=== PATIENT | male | born 1995 ===

== ENCOUNTER 2019-09-01 22:19 | Emergency (ER) | payer MEDICAID ==
[2019-09-01] MEDS ORDERED: Sodium Chloride 0.9% 1000 ML 1,000 ML ONE (22:43)
[2019-09-01] MEDS ORDERED: Pepcid 20 MG VIAL IV ONE (22:43)
[2019-09-01] MEDS ORDERED: Zofran 4 MG/2 ML VIAL ONE (22:43)
[2019-09-01 22:45] LABS: Absolute Neutrophil Ct (ANC) 5.58 (1.4-6.9); BASOPHIL % 0.3 % (0.0-0.4); Basophil (Absolute #) 0.02 (0-0.4); Eosinophil % 0.1 % (0.00-5.0); Eosinophil (Absolute #) 0.01 (0-0.5); Hematocrit 48.2 % (42-50); Hemoglobin 16.5 gm/dl (12.5-18.0); Lymphocyte (Absolute #) 1.73 (1.0-4.6); Lymphocytes % 22.1 % (24.0-44.0); Mean Cell Volume 88.8 fl (78-100); Mean Corpuscular Hemoglobin 30.4 pg (26-32); Mean Corpuscular Hgb Concent. 34.2 g/dl (32-36); Mean Platelet Volume 10.2 fl (7.5-11.0); Monocytes % 6.4 % (0.0-12.0); Neutrophil % 71.1 % (36.0-66.0); Platelet Count 278 K/mm3 (150-450); Red Blood Count 5.43 M/mm3 (4.1-5.6); Red Cell Distribution Width 12.5 % (11.5-14.0); White Blood Count 7.8 K/mm3 (4.0-10.5)
[2019-09-01] MEDS: Pepcid 20 MG VIAL IV ONE (22:46)
[2019-09-01] MEDS: Sodium Chloride 0.9% 1000 ML 1,000 ML IV STA (22:46)
[2019-09-01] MEDS: Zofran 4 MG/2 ML VIAL IV ONE (22:46)
[2019-09-01 22:48] LABS: Appearance CLEAR (CLEAR); Bilirubin NEGATIVE (NEGATIVE); Blood NEGATIVE Ery/ul (0-5); Glucose NEGATIVE (NEGATIVE); Ketones NEGATIVE (NEGATIVE); Leukocyte Esterase NEGATIVE (NEGATIVE); Mucus SLIGHT /HPF (NEGATIVE); Nitrite NEGATIVE (NEGATIVE); Protein,Urine Dip NEGATIVE (Negative); Specific Gravity 1.006 (1.005-1.025); Urobilinogen NEGATIVE mg/dL (0-1)
--- NOTE | 2019-09-01 22:49 | ERPHSYRPT ---
- History of Present Illness Time Seen by Provider: 09/01/19 22:20 Source: EMS, other Exam Limitations: clinical condition (Significant other), intoxication Patient Subjective Stated Complaint: Pt's friend informs us they were bowling and he was drinking, he drank approx 350ml of [place] Goose Vodka and a monster drink. Pt fell on ground at [facility], was lethargic and a friend had to carry him to car. When arrived at home, Friend carried him into home and they put him in the cold shower to try to wake him up, very little response to that. Called EMS, brought to ER. Triage Nursing Assessment: Pt's friend informs us they were bowling and he was drinking, he drank approx 350ml of [place] Goose Vodka and a monster drink. Pt fell on ground at [facility], was lethargic and a friend had to carry him to car. When arrived at home, Friend carried him into home and they put him in the cold shower to try to wake him up, very little response to that. Called EMS, brought to ER. Pt lethargic, received information from friend at bedside. Lungs clear. Physician History: 24-year-old white male who was not suicidal or homicidal but was bowling with friends and was combining drinks of zambrano goose vodka and monster caffeinated drinks. It is estimated that in a 4-hour period of time patient drank approximately 350 mL's of zambrano goose vodka. Most of which was drank within the first 2 hours. Patient was stumbling slurring his speech and was taken home by his significant other. They put him in the bathtub again a shower and he was lethargic and had minimal response. EMS was contacted. Upon arrival patient was lethargic but arousable. Patient is breathing on his own and maintaining a blood pressure that is normal. There have been no vomiting. Significant other states no other medications or illicit drugs were taken by this patient. Patient arrives to the emergency department via EMS. Timing/Duration: today Severity: moderate Associated Symptoms: denies symptoms Allergies/Adverse Reactions: UNOBTAINABLE Allergy (Unverified 09/01/19 22:33) Hx Tetanus, Diphtheria Vaccination/Date Given: (unknown) Hx Influenza Vaccination/Date Given: No Hx Pneumococcal Vaccination/Date Given: No Immunizations Up to Date: No Travel Risk - International Travel Have you traveled outside of the country in past 3 weeks: No - Coronavirus Screening Are you exhibiting any of the following symptoms?: No Close contact with a COVID-19 positive Pt in past 14-21 Days: No - Review of Systems Constitutional: Lethargy Eyes: No Symptoms Ears, Nose, & Throat: No Symptoms Respiratory: No Symptoms Cardiac: No Symptoms Abdominal/Gastrointestinal: No Symptoms Genitourinary Symptoms: No Symptoms Musculoskeletal: No Symptoms Skin: No Symptoms Neurological: Lethargy, Other (Intoxicated with alcohol. Smells of alcohol) Psychological: No Suicidal Ideations, No Homicidal Ideations Endocrine: No Symptoms Hematologic/Lymphatic: No Symptoms Immunological/Allergic: No Symptoms All Other Systems: Reviewed and Negative - Past Medical History Pertinent Past Medical History: No Neurological History: No Pertinent History ENT History: No Pertinent History Cardiac History: No Pertinent History Respiratory History: No Pertinent History Endocrine Medical History: No Pertinent History Musculoskeletal History: No Pertinent History GI Medical History: No Pertinent History History: No Pertinent History Psycho-Social History: No Pertinent History Male Reproductive Disorders: No Pertinent History - Past Surgical History Past Surgical History: No Neuro Surgical History: No Pertinent History Cardiac: No Pertinent History Respiratory: No Pertinent History Gastrointestinal: No Pertinent History Genitourinary: No Pertinent History Musculoskeletal: No Pertinent History Male Surgical History: No Pertinent History - Social History Smoking Status: Never smoker Exposure to second hand smoke: No Drug Use: marijuana Patient Lives Alone: No (grandparents) - Nursing Vital Signs Nursing Vital Signs: Initial Vital Signs Temperature 95.7 F 09/01/19 22:20 Pulse Rate 83 09/01/19 22:20 Respiratory Rate 20 09/01/19 22:20 Blood Pressure 169/151 09/01/19 22:20 O2 Sat by Pulse Oximetry 100 09/01/19 22:20 Pain Scale Pain Intensity 0 - Physical Exam General Appearance: lethargy, other Eye Exam: PERRL/EOMI (Smells of alcohol), eyes nml inspection Ears, Nose, Throat Exam: normal ENT inspection, moist mucous membranes Neck Exam: normal inspection, non-tender, supple, full range of motion Respiratory Exam: normal breath sounds, lungs clear, airway intact, No chest tenderness, No respiratory distress Cardiovascular Exam: regular rate/rhythm, normal heart sounds, normal peripheral pulses Gastrointestinal/Abdomen Exam: soft, normal bowel sounds, No tenderness, No gu arding Rectal Exam: not done Back Exam: normal inspection, No CVA tenderness, No vertebral tenderness Extremity Exam: normal inspection, pelvis stable Neurologic Exam: intoxicated appearance, slurred speech Skin Exam: normal color, warm, dry Lymphatic Exam: No adenopathy SpO2 Interpretation: normal SpO2: 99 O2 Delivery: Room Air - Course Nursing assessment & vital signs reviewed: Yes EKG Interpreted by Me: RATE (73), Sinus Rhythm, NORMAL AXIS, NORMAL INTERVALS, NORMAL QRS, Other (No acute ischemic changes. No comparison EKG available) Ordered Tests: Active Orders 24 hr Category Date Time Status Musical Instrument Maker STAT Care 09/01/19 22:23 Active Catheter-Sharps Ryan STAT Care 09/01/19 22:22 Active EKG-ER Only STAT Care 09/01/19 22:22 Active IV Insertion STAT Care 09/01/19 22:22 Active IV Insertion-2nd Peripheral STAT Care 09/01/19 22:41 Active Pulse Oximetry (ED) STAT Care 09/01/19 22:41 Active HEAD WITHOUT CONTRAST [CT] Stat Exams 09/01/19 22:22 Taken ACETAMINOPHEN Stat Lab 09/01/19 22:43 Completed CBC W DIFF Stat Lab 09/01/19 22:43 Completed CMP Stat Lab 09/01/19 22:43 Completed CULTURE,URINE Stat Lab 09/01/19 22:43 Received ETHYL ALCOHOL Stat Lab 09/01/19 22:43 Completed ETHYL ALCOHOL Stat Lab 09/02/19 04:13 Ordered UA W/RFX UR CULTURE Stat Lab 09/01/19 22:43 Completed Urine Triage Profile Stat Lab 09/01/19 22:43 Completed Medication Summary Generic Name Dose Route Start Last Admin Trade Name Freq PRN Reason Stop Dose Admin Famotidine 40 mg 09/02/19 22:24 09/01/19 22:46 Pepcid 20 Mg Vial IV 09/02/19 22:25 40 mg STAT ONE Administration Discontinued Medications Generic Name Dose Route Start Last Admin Trade Name Freq PRN Reason Stop Dose Admin Famotidine Confirm 09/01/19 22:43 Pepcid 20 Mg Vial Administered 09/01/19 22:44 Dose 40 mg IV .STK-MED ONE Sodium Chloride 1,000 mls @ 999 mls/hr 09/01/19 22:22 09/01/19 22:46 Sodium Chloride 0.9% 1000 Ml IV 09/01/19 23:22 999 mls/hr .Q1H1M STA Administration Sodium Chloride Confirm 09/01/19 22:43 Sodium Chloride 0.9% 1000 Ml Administered 09/01/19 22:44 Dose 1,000 mls @ ud .ROUTE .STK-MED ONE Sodium Chloride 1,000 mls @ 999 mls/hr 09/02/19 00:52 09/02/19 01:00 Sodium Chloride 0.9% 1000 Ml IV 09/02/19 01:52 999 mls/hr .Q1H1M STA Administration Sodium Chloride Confirm 09/02/19 00:54 Sodium Chloride 0.9% 1000 Ml Administered 09/02/19 00:55 Dose 1,000 mls @ ud .ROUTE .STK-MED ONE Ondansetron HCl 4 mg 09/01/19 22:22 09/01/19 22:46 Zofran 4 Mg/2 Ml Vial IV 09/01/19 22:23 4 mg STAT ONE Administration Ondansetron HCl Confirm 09/01/19 22:43 Zofran 4 Mg/2 Ml Vial Administered 09/01/19 22:44 Dose 4 mg .ROUTE .STK-MED ONE Lab/Rad Data: Laboratory Result Diagrams 09/01/19 22:43 09/01/19 22:43 Laboratory Results 09/01/19 09/01/19 09/01/19 Range/Units 22:43 22:43 22:43 WBC (4.0-10.5) K/mm3 RBC (4.1-5.6) M/mm3 Hgb (12.5-18.0) gm/dl Hct (42-50) % MCV (78-100) fl MCH (26-32) pg MCHC (32-36) g/dl RDW (11.5-14.0) % Plt Count (150-450) K/mm3 MPV (7.5-11.0) fl Gran % (36.0-66.0) % Eos # (Auto) (0-0.5) Absolute Lymphs (auto) (1.0-4.6) Absolute Monos (auto) (0.0-1.3) Lymphocytes % (24.0-44.0) % Monocytes % (0.0-12.0) % Eosinophils % (0.00-5.0) % Basophils % (0.0-0.4) % Absolute Granulocytes (1.4-6.9) Basophils # (0-0.4) Sodium 143 (137-145) mmol/L Potassium 3.4 L (3.5-5.1) mmol/L Chloride 106 (98-107) mmol/L Carbon Dioxide 24 (22-30) mmol/L Anion Gap 16.3 H (5-15) MEQ/L BUN 12 (9-20) mg/dL Creatinine 0.94 (0.66-1.25) mg/dL Estimated GFR > 60.0 ML/MIN Glucose 124 H (74-106) mg/dL Calcium 8.8 (8.4-10.2) mg/dL Total Bilirubin 0.40 (0.2-1.3) mg/dL AST 35 (17-59) U/L ALT 28 (0-50) U/L Alkaline Phosphatase 108 (38-126) U/L Serum Total Protein 7.9 (6.3-8.2) g/dL Albumin 4.7 (3.5-5.0) g/dL Urine Color STRAW (YELLOW) Urine Appearance CLEAR (CLEAR) Urine pH 6.0 (5-6) Ur Specific [place] 1.006 (1.005-1.025) Urine Protein NEGATIVE (Negative) Urine Ketones NEGATIVE (NEGATIVE) Urine Blood NEGATIVE (0-5) Cliff/ul Urine Nitrite NEGATIVE (NEGATIVE) Urine Bilirubin NEGATIVE (NEGATIVE) Urine Urobilinogen NEGATIVE (0-1) mg/dL Ur Leukocyte Esterase NEGATIVE (NEGATIVE) Urine WBC (Auto) NONE (0-5) /HPF Urine RBC (Auto) NONE (0-2) /HPF U Epithel Cells (Auto) NONE (FEW) /HPF Urine Bacteria (Auto) NONE (NEGATIVE) /HPF Urine Mucus (Auto) SLIGHT (NEGATIVE) /HPF Urine Culture Reflexed ORDERED SEPARATELY (NO) Urine Glucose NEGATIVE (NEGATIVE) mg/dL Urine Opiates Level NEGATIVE (NEGATIVE) Ur Methadone NEGATIVE (NEGATIVE) Acetaminophen < 10 L (10-30) ug/ml Urine Barbiturates NEGATIVE (NEGATIVE) Ur Phencyclidine (PCP) NEGATIVE (NEGATIVE) Urine Amphetamine NEGATIVE (NEGATIVE) U Benzodiazepine Level NEGATIVE (NEGATIVE) Urine Cocaine NEGATIVE (NEGATIVE) Urine Marijuana (THC) NEGATIVE (NEGATIVE) Ethyl Alcohol 356 H (0-10) mg/dL 09/01/19 Range/Units 22:43 WBC 7.8 (4.0-10.5) K/mm3 RBC 5.43 (4.1-5.6) M/mm3 Hgb 16.5 (12.5-18.0) gm/dl Hct 48.2 (42-50) % MCV 88.8 (78-100) fl MCH 30.4 (26-32) pg MCHC 34.2 (32-36) g/dl RDW 12.5 (11.5-14.0) % Plt Count 278 (150-450) K/mm3 MPV 10.2 (7.5-11.0) fl Gran % 71.1 H (36.0-66.0) % Eos # (Auto) 0.01 (0-0.5) Absolute Lymphs (auto) 1.73 (1.0-4.6) Absolute Monos (auto) 0.50 (0.0-1.3) Lymphocytes % 22.1 L (24.0-44.0) % Monocytes % 6.4 (0.0-12.0) % Eosinophils % 0.1 (0.00-5.0) % Basophils % 0.3 (0.0-0.4) % Absolute Granulocytes 5.58 (1.4-6.9) Basophils # 0.02 (0-0.4) Sodium (137-145) mmol/L Potassium (3.5-5.1) mmol/L Chloride (98-107) mmol/L Carbon Dioxide (22-30) mmol/L Anion Gap (5-15) MEQ/L BUN (9-20) mg/dL Creatinine (0.66-1.25) mg/dL Estimated GFR ML/MIN Glucose (74-106) mg/dL Calcium (8.4-10.2) mg/dL Total Bilirubin (0.2-1.3) mg/dL AST (17-59) U/L ALT (0-50) U/L Alkaline Phosphatase (38-126) U/L Serum Total Protein (6.3-8.2) g/dL Albumin (3.5-5.0) g/dL Urine Color (YELLOW) Urine Appearance (CLEAR) Urine pH (5-6) Ur Specific [place] (1.005-1.025) Urine Protein (Negative) Urine Ketones (NEGATIVE) Urine Blood (0-5) Cliff/ul Urine Nitrite (NEGATIVE) Urine Bilirubin (NEGATIVE) Urine Urobilinogen (0-1) mg/dL Ur Leukocyte Esterase (NEGATIVE) Urine WBC (Auto) (0-5) /HPF Urine RBC (Auto) (0-2) /HPF U Epithel Cells (Auto) (FEW) /HPF Urine Bacteria (Auto) (NEGATIVE) /HPF Urine Mucus (Auto) (NEGATIVE) /HPF Urine Culture Reflexed (NO) Urine Glucose (NEGATIVE) mg/dL Urine Opiates Level (NEGATIVE) Ur Methadone (NEGATIVE) Acetaminophen (10-30) ug/ml Urine Barbiturates (NEGATIVE) Ur Phencyclidine (PCP) (NEGATIVE) Urine Amphetamine (NEGATIVE) U Benzodiazepine Level (NEGATIVE) Urine Cocaine (NEGATIVE) Urine Marijuana (THC) (NEGATIVE) Ethyl Alcohol (0-10) mg/dL - Progress Progress: improved, re-examined Progress Note: 09/02/19 00:53 Patient reexamined. Patient still intoxicated but wakes up more readily wake up and he opens his eyes and answers some questions but speech is still slurred. Following some commands. 09/02/19 04:34 Patient sitting up on his own. Intoxication is still present but now laughing and joking. He is interacting with nurses been having full discussions with them. We will obtain another alcohol level. If this level is reasonable and he tolerates both oral liquids and is ambulating well on his own, the plan is to discharge him to home. 09/02/19 04:50 CAT scan of the head reveals no acute intracranial abnormality 09/02/19 04:52 Patient states that he has no chest pain he is not short of breath he has no abdominal pain. He has no nausea. 09/02/19 05:06 Patient's repeat blood alcohol is 233. Patient is awake alert speaking more clearly. He is tolerated clear liquids and he ambulated on his own to urinate in the restroom. We will discharge him to home. Counseled pt/family regarding: lab results, diagnosis - Departure Departure Disposition: Home Clinical Impression: Acute alcohol intoxication Condition: Stable Critical Care Time: No Referrals: DOCTOR,NO FAMILY [Primary Care Provider] - Additional Instructions: Follow-up with an as-needed basis. Avoid alcohol ingestion. Avoid fatty greasy spicy foods. Your medication as prescribed. Prescriptions: Famotidine 20 mg [Pepcid 20 MG] 20 mg PO DAILY #10 tablet Ondansetron HCl [Zofran] 4 mg PO TID PRN #10 tablet PRN Reason: Nausea/Vomiting
[2019-09-01 22:58] LABS: ALBUMIN 4.7 g/dL (3.5-5.0); ALKALINE PHOSPHATASE 108 U/L (38-126); ANION GAP 16.3 MEQ/L (5-15); BLOOD UREA NITROGEN 12 mg/dL (9-20); CHLORIDE 106 mmol/L (98-107); Calcium 8.8 mg/dL (8.4-10.2); Carbon Dioxide 24 mmol/L (22-30); Creatinine 1 0.94 mg/dL (0.66-1.25); Glucose 124 mg/dL (74-106); Potassium 3.4 mmol/L (3.5-5.1); SGOT/AST 35 U/L (17-59); SGPT/ALT 28 U/L (0-50); SODIUM 143 mmol/L (137-145); Total Protein 7.9 g/dL (6.3-8.2)
[2019-09-01 23:01] LABS: Amphetamine,Urine NEGATIVE (NEGATIVE); Barbiturate,Urine NEGATIVE (NEGATIVE); Benzodiazepine,Urine NEGATIVE (NEGATIVE); Cocaine,Urine NEGATIVE (NEGATIVE); Methadone,Urine NEGATIVE (NEGATIVE); Opiate,Urine NEGATIVE (NEGATIVE); PCP,Urine NEGATIVE (NEGATIVE); THC,Urine NEGATIVE (NEGATIVE)
[2019-09-01 23:07] LABS: ACETAMINOPHEN < 10 ug/ml (10-30); ETHYL ALCOHOL 356 mg/dL (0-10)
[2019-09-02] MEDS ORDERED: Sodium Chloride 0.9% 1000 ML 1,000 ML ONE (00:54)
[2019-09-02] MEDS: Sodium Chloride 0.9% 1000 ML 1,000 ML IV STA (01:00)
[2019-09-02 05:35] VITALS: BP 105/62; PULSE 78; O2SAT 98
--- NOTE | 2019-09-02 09:05 | XRAY ---
Indication: Altered mental status. Alcohol intoxication. Multiple contiguous axial images obtained through the head without contrast. Comparison: None Anatomic variant for cavum septum pellucidum. Otherwise normal appearing brain parenchyma, ventricles, and bony calvarium. Visualized paranasal sinuses and mastoid air cells are clear. Impression: Negative CT head without contrast exam. Comment: Preliminary interpretation was made by [facility]. No critical discrepancy.
== END 2019-09-02 05:20 | disposition critical access hospital (66) ==
LOC: ED 22:19
DX: F10.129 Alcohol abuse with intoxication, unspecified (principal)
CPT/HCPCS: 36000; 36415; 51702; 70450; 80053; 80307; 81001; 85025; 87086; 93005; 93041; 94760; 96360; 96361; 96374; 96375; 99285; J2405; G0480